=== PATIENT | male | born 1945 | race Two or more races ===

== ENCOUNTER 2025-02-14 14:11 | Inpatient (IN) | payer MEDICARE, BC ==
[~2025-02-14] VITALS: Ht 177.8 cm; Wt 93.1 kg
[2025-02-14] MEDS ORDERED: MOM 30 ML SUSPENSION UDC PO PRN (14:25)
[2025-02-14] MEDS ORDERED: BISACODYL 10 MG SUPP PR PRN (14:25)
[2025-02-14] MEDS ORDERED: BISACODYL 5 MG TAB PO PRN (14:25)
[2025-02-14] MEDS ORDERED: MAALOX 30 ML SUSP *UDC PO PRN (14:25)
[2025-02-14] MEDS ORDERED: SIMETHICONE 80MG CHEW TAB PO PRN (14:25)
[2025-02-14] MEDS ORDERED: MECLIZINE 25 MG TABLET PO PRN (14:45)
[2025-02-14] MEDS ORDERED: ONDANSETRON 4MG ORAL DISINTEGRATING TAB SL PRN (14:45)
[2025-02-14] MEDS ORDERED: **hydrALAZINE HCL** 25 MG TAB PO PRN (14:50)
[2025-02-14 16:00] VITALS: BP 126/87; TEMP 97.7; O2SAT 96
[2025-02-14] MEDS ORDERED: AMLO2.5T3 PO (17:47)
[2025-02-14] MEDS ORDERED: ATOR1TAB21 PO (17:47)
[2025-02-14] MEDS ORDERED: [UNRECOGNIZED DRUG - CODE] TOP (17:47)
[2025-02-14] MEDS ORDERED: OMEP1CAP71 PO (17:47)
[2025-02-14] MEDS ORDERED: LOSA100T46 PO (17:47)
[2025-02-14] MEDS ORDERED: ELIQ5TAB PO (17:47)
[2025-02-14] MEDS ORDERED: VITA100066 PO (17:47)
[2025-02-14] MEDS ORDERED: ACET-897 PO (17:47)
[2025-02-14] MEDS ORDERED: MAGN400T35 PO (17:49)
[2025-02-14] MEDS ORDERED: POLY17PO18 PO (17:54)
[2025-02-14] MEDS ORDERED: MECL-209 PO (17:54)
[2025-02-14] MEDS ORDERED: CO-E200C PO (17:54)
[2025-02-14] MEDS ORDERED: LORA-930 PO (17:54)
[2025-02-14] MEDS ORDERED: SENN-188 PO (17:54)
[2025-02-14] MEDS ORDERED: MED REC COMMENT (17:56)
[2025-02-14] MEDS ORDERED: HOME MED LIST COMPLETE! XX SCH (18:00)
[2025-02-14 20:00] VITALS: BP 118/89; TEMP 98.3; O2SAT 95
[2025-02-14] MEDS: LORATADINE 10 MG TAB PO SCH (21:07)
[2025-02-14] MEDS: ATORVASTATIN 20 MG TAB PO SCH (21:07)
[2025-02-14] MEDS: DOCUSATE SODIUM 100 MG CAPSULE PO SCH (21:07)
[2025-02-14] MEDS: APIXABAN 5 MG TAB PO SCH (21:07)
[2025-02-14] MEDS: SENNA 8.6 MG TAB PO SCH (21:07)
[2025-02-15 04:00] VITALS: BP 108/77; TEMP 96.8; O2SAT 95
[2025-02-15] MEDS: OMEPRAZOLE 20MG CAP PO SCH (07:38)
[2025-02-15] MEDS: MIRALAX *UNIT DOSE* 17 GM PACKET PO SCH (07:39)
[2025-02-15] MEDS: LOSARTAN 50 MG TABLET PO SCH (07:39)
[2025-02-15 08:30] LABS: BASO # 0.0 10^3/uL (0.0-0.2); BASO % 0.3 % (0.0-1.0); EOS # 0.3 10^3/uL (0.0-0.5); EOS % 3.7 % (0.0-3.0); LYMPH # 1.3 10^3/uL (1.5-5.0); LYMPH % 19.7 % (24.0-44.0); MONO # 0.8 10^3/uL (0.0-0.8); MONO % 11.5 % (2.0-8.0); NEUTROPHILS # 4.3 10^3/uL (1.5-8.5); NEUTROPHILS % 64.2 % (36.0-66.0); PLATELET COUNT, AUTOMATED 153 10^3/uL (150-450)
[2025-02-15 08:54] LABS: ALT/SGPT 61.0 U/L (7.0-40); AST/SGOT 23.0 U/L (<34); CALCIUM LEVEL 9.7 MG/DL (8.3-10.6); CARBON DIOXIDE LEVEL 24.0 MMOL/L (20-31); CHLORIDE LEVEL 106.0 MMOL/L (98-107); CREATININE FOR GFR 1.15 MG/DL (0.70-1.30); GLOMERULAR FILTRATION RATE 64.3 (>35); POTASSIUM SERUM 4.2 MMOL/L (3.5-5.1); SODIUM LEVEL 143.0 MMOL/L (136-145)
[2025-02-15] MEDS ORDERED: PANTOPRAZOLE 40MG TAB PO SCH (09:00)
[2025-02-15 12:36] VITALS: BP 104/65; TEMP 98.5; O2SAT 95
[2025-02-15] MEDS: ACETAMINOPHEN 500 MG TAB PO PRN (14:31)
[2025-02-15 20:00] VITALS: BP 102/62; TEMP 97.6; O2SAT 95
[2025-02-16 04:00] VITALS: BP 113/67; TEMP 96.7; O2SAT 98
[2025-02-16 07:22] VITALS: BP 107/85
[2025-02-16 12:00] VITALS: BP 110/74; TEMP 97.5; O2SAT 93
[2025-02-16 19:25] VITALS: BP 114/73; TEMP 97.7; O2SAT 100
[2025-02-17 03:36] VITALS: BP 116/76; TEMP 97.5; O2SAT 96
[2025-02-17 07:25] VITALS: BP 107/80
[2025-02-17 12:00] VITALS: BP 131/83; TEMP 96.2; O2SAT 97
[2025-02-17 20:01] VITALS: BP 117/66; TEMP 97.5; O2SAT 97
[2025-02-18 03:46] VITALS: BP 123/87; TEMP 98.6; O2SAT 98
[2025-02-18 11:46] VITALS: BP 109/78; TEMP 98; O2SAT 96
[2025-02-18 20:00] VITALS: BP 123/82; TEMP 97.6; O2SAT 96
[2025-02-19 04:00] VITALS: BP 116/84; TEMP 97.5; O2SAT 96
[2025-02-19 12:00] VITALS: BP 103/77; TEMP 98.3; O2SAT 97
[2025-02-19 20:00] VITALS: BP 109/72; TEMP 97; O2SAT 97
[2025-02-20 04:00] VITALS: BP 102/75; TEMP 97.1; O2SAT 99
[2025-02-20 12:01] VITALS: BP 116/77; TEMP 97.7; O2SAT 98
[2025-02-20 19:40] VITALS: BP 92/62; TEMP 97.1; O2SAT 96
[2025-02-21 03:45] VITALS: BP 128/79; TEMP 97.2; O2SAT 100
[2025-02-21 11:10] VITALS: BP 118/79; TEMP 97.8; O2SAT 95
[2025-02-21 11:27] VITALS: BP 118/79
[2025-02-21 11:42] VITALS: BP 126/75; TEMP 98; O2SAT 97
[2025-02-21] MEDS ORDERED: ATOR1TAB21 PO (11:48)
[2025-02-21] MEDS ORDERED: ELIQ5TAB PO (11:48)
[2025-02-21] MEDS ORDERED: OMEP-173 PO (11:48)
== END 2025-02-21 13:45 | disposition home or self-care (01) | DRG 66 ==
LOC: M PM&R 16:00
PROVIDERS: ADMIT Physical Medicine & Rehabilitation; ATTEND Physical Medicine & Rehabilitation
DX: I63.542 Cerebral infarction due to unspecified occlusion or stenosis of left cerebellar artery (principal); Z66 Do not resuscitate; N40.0 Benign prostatic hyperplasia without lower urinary tract symptoms; Q66.6 Other congenital valgus deformities of feet; I10 Essential (primary) hypertension; E78.5 Hyperlipidemia, unspecified; I45.4 Nonspecific intraventricular block; K21.9 Gastro-esophageal reflux disease without esophagitis; Z74.1 Need for assistance with personal care; Z74.09 Other reduced mobility; K59.00 Constipation, unspecified; R42 Dizziness and giddiness; Z86.718 Personal history of other venous thrombosis and embolism; Z79.01 Long term (current) use of anticoagulants; Z79.899 Other long term (current) drug therapy